=== PATIENT | male | born 1990 | race Caucasian/White ===

== ENCOUNTER 2018-07-28 07:00 | Day surgery (SDC) | payer OTHER ==
[~2018-07-28] VITALS: Ht 170.2 cm; Wt 74.4 kg
[2018-07-28] MEDS ORDERED: MIDAZOLAM HCL 5 MG/5 ML VIAL ONE ×2 (07:20→07:21)
[2018-07-28] MEDS ORDERED: fentaNYL CITRATE/PF 100 MCG/2 ML AMP ONE (07:21)
[2018-07-28] MEDS ORDERED: SIMETHICONE 40 MG/0.6 ML ML ONE (07:21)
[2018-07-28 09:53] VITALS: BP_SYST 112
== END 2018-07-28 09:50 | disposition home or self-care (01) ==
LOC: SMU 07:00 → SDS 07:00
PROVIDERS: ATTEND Surgery
DX: K62.5 Hemorrhage of anus and rectum (principal); K62.89 Other specified diseases of anus and rectum; Z21 Asymptomatic human immunodeficiency virus [HIV] infection status; R10.9 Unspecified abdominal pain
CPT/HCPCS: 45380; 88305; J2250; J3010

== ENCOUNTER 2018-10-20 06:35 | Day surgery (SDC) | payer OTHER ==
[~2018-10-20] VITALS: Ht 170.2 cm; Wt 74.8 kg
[2018-10-20] MEDS ORDERED: SIMETHICONE 40 MG/0.6 ML ML ONE (07:00)
[2018-10-20] MEDS ORDERED: fentaNYL CITRATE/PF 100 MCG/2 ML AMP ONE (07:03)
[2018-10-20] MEDS ORDERED: MIDAZOLAM HCL 5 MG/5 ML VIAL ONE (07:03)
[2018-10-20 10:34] VITALS: BP_SYST 108
== END 2018-10-20 09:39 | disposition home or self-care (01) ==
LOC: SDS 06:35
PROVIDERS: ATTEND Surgery
DX: K29.70 Gastritis, unspecified, without bleeding (principal); K25.9 Gastric ulcer, unspecified as acute or chronic, without hemorrhage or perforation; B20 Human immunodeficiency virus [HIV] disease; Z79.899 Other long term (current) drug therapy; I10 Essential (primary) hypertension
CPT/HCPCS: 36415; 43239; 87081; J2250; J3010; J7030

== ENCOUNTER 2019-01-13 11:10 | Day surgery (SDC) | payer OTHER ==
[~2019-01-13] VITALS: Ht 170.2 cm; Wt 75.7 kg
[2019-01-13] MEDS ORDERED: BUPIVACAINE LIPOSOME/PF 266 MG/20 ML VIAL INFIL ONE (13:40)
[2019-01-13] MEDS ORDERED: KETOROLAC TROMETHAMINE 30 MG VIAL IVP PRN (13:45)
[2019-01-13] MEDS ORDERED: ONDANSETRON HCL 4 MG/2 ML VIAL IVP PRN ×2 (13:45→14:00)
[2019-01-13] MEDS ORDERED: fentaNYL CITRATE/PF 100 MCG/2 ML AMP IVP PRN ×2 (13:45)
[2019-01-13] MEDS ORDERED: MORPHINE 4 MG/ML INJ. SYRINGE IVP PRN (14:00)
[2019-01-13] MEDS ORDERED: ACETAMINOPHEN/CODEINE 300 MG-30 MG TABLET PO PRN (14:00)
[2019-01-13 16:14] VITALS: BP_SYST 124
[2019-01-13] MEDS ORDERED: BACITRACIN 1 GM OINT TP ONE (19:10)
[2019-01-13] MEDS ORDERED: SEVOFLURANE 15 MIN GAS INH ONE (19:10)
[2019-01-13] MEDS ORDERED: NS IRRIG SOLN 1000 ML IR ONE (19:10)
[2019-01-13] MEDS ORDERED: fentaNYL CITRATE/PF 100 MCG/2 ML AMP ONE (19:10)
[2019-01-13] MEDS ORDERED: LR 1,000 ML IV.SOLN IV ONE (19:10)
[2019-01-13] MEDS ORDERED: PROPOFOL 200MG/ 20ML VIAL (DIPRIVAN) IV ONE (19:10)
[2019-01-13] MEDS ORDERED: ROCURONIUM BROMIDE 10 MG/ML (ZEMURON) ONE (19:10)
[2019-01-13] MEDS ORDERED: MIDAZOLAM HCL 5 MG/ML VIAL (VERSED) IV ONE (19:10)
[2019-01-13] MEDS ORDERED: NS 50 ML BAG IV ONE (19:10)
== END 2019-01-13 15:45 | disposition home or self-care (01) ==
LOC: SMU 11:10 → SDS 11:10
PROVIDERS: ATTEND Surgery
DX: K64.8 Other hemorrhoids (principal); K64.4 Residual hemorrhoidal skin tags; Z21 Asymptomatic human immunodeficiency virus [HIV] infection status
CPT/HCPCS: 46255; 46945; 88304; C9290; J2250; J2704; J3010; J7120